=== PATIENT | male | born 1960 | race Caucasian/White ===

== ENCOUNTER → 2020-12-26 09:34 | Outpatient (CLI) | payer OTHER, SELFPAY ==
[2020-12-26 11:27] LABS: Prostate Specific Antigen Scrn 0.851 ng/mL (0.1-4.0)
== END ==
PROVIDERS: PCP Student in an Organized Health Care Education/Training Program; Referring Provider Student in an Organized Health Care Education/Training Program; Visit Provider Student in an Organized Health Care Education/Training Program
DX: Z12.5 Encounter for screening for malignant neoplasm of prostate (principal)
CPT/HCPCS: 36415; G0103

== ENCOUNTER → 2022-05-01 16:02 | Outpatient (CLI) | payer OTHER, SELFPAY ==
[2022-05-03 04:01] LABS: Cholesterol 156 mg/dL (140-199); HDL Cholesterol 53 mg/dL (40-60); LDL Cholesterol Calculated 86 mg/dL (<100); Triglycerides 87 mg/dL (35-150)
[2022-05-03 04:36] LABS: Prostate Specific Antigen Scrn 0.488 ng/mL (0.1-4.0)
== END ==
PROVIDERS: PCP Student in an Organized Health Care Education/Training Program; Referring Provider Student in an Organized Health Care Education/Training Program; Visit Provider Student in an Organized Health Care Education/Training Program
DX: Z13.220 Encounter for screening for lipoid disorders (principal); Z12.5 Encounter for screening for malignant neoplasm of prostate
CPT/HCPCS: 36415; 80061; G0103